=== PATIENT | male | born 1945 | race African-American/Black ===

== ENCOUNTER 2023-08-30 21:33 | Emergency (ER) | payer MEDICARE ==
[~2023-08-30] VITALS: Ht 177.8 cm; Wt 83.9 kg
[2023-08-30] MEDS: NACL 0.9% 1,000 ML IV ONE (01:00)
[2023-08-30] MEDS: CEFEPIME 1,000 MG in DEXTROSE 5% 50 ML IV ONE (01:05)
[2023-08-30 21:35] VITALS: BP 162/90; PULSE 120; RESP 20; TEMP 97.4; O2SAT 96
[2023-08-30 21:59] VITALS: O2SAT 95
[2023-08-30 23:37] LABS: FLU A ANTIGEN negative (NEGATIVE); FLU B ANTIGEN NEGATIVE (NEGATIVE)
[2023-08-30 23:43] LABS: BASOPHILS % (AUTO) 0.1 % (0.0-2.0); EOSINOPHILS % (AUTO) 0.2 % (0.0-4.0); HEMATOCRIT 28.1 % (36-52); HEMOGLOBIN 9.5 g/dL (12.0-18.0); LYMPHOCYTES # (AUTO) 0.8 K/uL (2.0-11.5); LYMPHOCYTES % (AUTO) 10.4 % (20.5-51.1); MEAN CORPUSCULAR HEMOGLOBIN 30 pg (27-31); MEAN CORPUSCULAR HGB CONC 34 g/dL (33-37); MEAN CORPUSCULAR VOLUME 88.6 fL (80-94); MONOCYTES # (AUTO) 1.5 K/uL (0.8-1.0); MONOCYTES % (AUTO) 18.4 % (1.7-9.3); NEUTROPHILS # (AUTO) 5.7 K/uL (1.8-7.7); NEUTROPHILS % (AUTO) 70.9 % (42.2-75.2); PLATELET COUNT (AUTO) 98 K/uL (140-450); RED BLOOD CELL COUNT(AUTO) 3.18 MIL/uL (4.20-6.10); RED CELL DISTRIBUTION WIDTH 12.6 % (11.6-13.7); WHITE BLOOD COUNT (AUTO) 8.1 K/uL (4.8-10.8)
[2023-08-31 00:06] LABS: ALANINE AMINOTRANSFERASE 26 U/L (12-78); ALBUMIN 2.2 g/dL (3.4-5.0); ALKALINE PHOSPHATASE 274 U/L (50-136); ASPARTATE AMINOTRANSFERASE 26 U/L (15-37); CALCIUM 9.1 mg/dL (8.5-10.1); CARBON DIOXIDE 21.8 mmol/L (21-32); CHLORIDE 102 mmol/L (98-107); CREATININE 1.5 mg/dL (0.6-1.3); GLUCOSE 136 mg/dL (74-106); POTASSIUM 3.8 mmol/L (3.5-5.1); SODIUM SERUM 137 mmol/L (136-145); TOTAL BILIRUBIN 0.8 mg/dL (0.0-1.0); TOTAL PROTEIN, SERUM 6.7 g/dL (6.4-8.2); UREA NITROGEN, BLOOD 12 mg/dL (7-18)
[2023-08-31] MEDS ORDERED: CEFEPIME 1,000 MG VIAL ONE (00:46)
[2023-08-31 01:04] LABS: INR 1.17 (0.8-1.2); PROTHROMBIN TIME 12.2 secs (10.8-13.4)
[2023-08-31 01:09] VITALS: O2SAT 94
[2023-08-31] MEDS ORDERED: IBUPROFEN 600 MG TAB ONE (01:12)
[2023-08-31] MEDS: IBUPROFEN 600 MG TAB PO ONE (01:14)
[2023-08-31] MEDS: VANCOMYCIN 1,000 MG in DEXTROSE 5% 250 ML IV ONE (01:30)
[2023-08-31] MEDS ORDERED: VANCOMYCIN 1,000 MG VIAL ONE (01:32)
[2023-08-31] MEDS: MORPHINE SULFATE 2 MG/ML SYR IVP STA (03:00)
[2023-08-31] MEDS: QUEtiapine FUMARATE 25 MG TAB PO STA ×2 (03:01→05:04)
[2023-08-31 03:42] LABS: APPEARANCE,URINE CLEAR (CLEAR); BILIRUBIN,URINE NEGATIVE (NEGATIVE); BLOOD, URINE NEGATIVE (NEGATIVE); COLOR,URINE YELLOW (YELLOW); LEUKOCYTE ESTERASE ,URINE NEGATIVE (NEGATIVE); NITRITE, URINE NEGATIVE (NEGATIVE); PROTEIN,URINE TRACE (NEGATIVE); UGLUCOSE NEGATIVE (NEGATIVE); UROBILINOGEN,URINE 0.2 EU/dL (0.2 - 1)
[2023-08-31 04:05] LABS: BACTERIA,URINE OCCASSIONAL /HPF (None Seen); RBC,URINE NONE SEEN /HPF (0-5); SQUAMOUS EPITHELIAL CELL,UR 0-3 (FEW) /LPF (0-3 (FEW)); WBC,URINE NONE SEEN /HPF (0-5)
[2023-08-31 04:10] VITALS: O2SAT 94
[2023-08-31] MEDS: diphenhydrAMINE 50 MG/ML VIAL IVP ONE (05:15)
[2023-08-31 07:45] VITALS: O2SAT 96
[2023-08-31 09:16] VITALS: BP 113/49; PULSE 96; RESP 16; TEMP 98.6; O2SAT 99
== END 2023-08-31 09:16 | disposition home or self-care (01) ==
LOC: MED 21:33
DX: J18.9 Pneumonia, unspecified organism (principal); Z20.822 Contact with and (suspected) exposure to COVID-19; J90 Pleural effusion, not elsewhere classified; K80.20 Calculus of gallbladder without cholecystitis without obstruction; R41.0 Disorientation, unspecified; J45.909 Unspecified asthma, uncomplicated; I10 Essential (primary) hypertension; Z88.5 Allergy status to narcotic agent; Z79.899 Other long term (current) drug therapy
CPT/HCPCS: 36415; 70450; 71045; 74176; 80053; 81001; 83880; 84484; 85025; 85610; 85730; 87040; 87086; 87426; 87804; 96365; 96368; 96375; 99291; J0692; J1200; J2270; J3370; Q0092; J7030